=== PATIENT | female | born 1940 | race Caucasian/White ===

== ENCOUNTER 2021-11-04 13:49 | Emergency (ER) | payer MEDICARE, MEDICAID ==
[2021-11-04] MEDS ORDERED: GLIP5TAB12 PO (14:12)
[2021-11-04 15:55] LABS: BASOPHILS % (AUTO) 0.6 % (0.0-2.0); EOSINOPHILS % (AUTO) 1.1 % (1.0-6.0); HEMATOCRIT 37.6 % (36-46); HEMOGLOBIN 12.6 g/dL (12.0-16.0); LYMPHOCYTES # (AUTO) 2.2 K/uL (1.0-4.8); LYMPHOCYTES % (AUTO) 18.3 % (22.0-44.0); MEAN CORPUSCULAR HEMOGLOBIN 28.9 pg (26.0-34.0); MEAN CORPUSCULAR HGB CONC 33.6 G/dL (31.0-37.0); MEAN CORPUSCULAR VOLUME 86 fL (80-100); MONOCYTES # (AUTO) 0.8 K/uL (0.1-1.0); NEUTROPHILS # (AUTO) 8.7 K/uL (1.8-7.7); PLATELET COUNT (AUTO) 232 K/uL (150-450); RED BLOOD CELL COUNT(AUTO) 4.36 MIL/uL (4.00-5.20)
[2021-11-04 16:10] LABS: ANION GAP 5 mmol/L (8-16); CARBON DIOXIDE 32 mmol/L (22-29); CHLORIDE 100 mmol/L (98-107); GLOMERULAR FILTR. RATE CALC > 60 mL/min (>60); GLUCOSE,RANDOM 97 mg/dL (70-110); SODIUM SERUM 137 mmol/L (136-145); UREA NITROGEN, BLOOD 9 mg/dL (7-18)
[2021-11-04 16:14] LABS: APPEARANCE,URINE CLEAR (CLEAR); BILIRUBIN,URINE NEGATIVE (NEGATIVE); GLUCOSE, URINE (UA) NEGATIVE (NEGATIVE); KETONES,URINE NEGATIVE (NEGATIVE); LEUKOCYTE ESTERASE ,URINE NEGATIVE (NEGATIVE); NITRATE,URINE NEGATIVE (NEGATIVE); OCCULT BLOOD,URINE NEGATIVE (NEGATIVE); PH,URINE 7.5 (5.0-8.0); PROTEIN,URINE NEGATIVE (NEGATIVE); SPECIFIC GRAVITIY, URINE 1.003 (1.003-1.030); UROBILINOGEN,URINE <=1.0 mg/dL (<=1.0)
[2021-11-04 16:16] LABS: ALANINE AMINOTRANSFERASE 23 U/L (12-78); ALBUMIN 3.6 g/dL (3.4-5.0); ALKALINE PHOSPHATASE 97 U/L (46-116); ASPARTATE AMINOTRANSFERASE 23 U/L (15-37); BILIRUBIN,TOTAL 0.4 mg/dL (0.1-1.0); LIPASE 58 U/L (73-393); TOTAL PROTEIN, SERUM 7.7 g/dL (6.4-8.2)
[2021-11-04] MEDS ORDERED: SODIUM CHLORIDE 0.9% 500 ML IV ONE (17:30)
[2021-11-04 17:48] VITALS: BP 159/85
== END 2021-11-04 18:07 | disposition home or self-care (01) ==
LOC: EMS 13:51
DX: R10.11 Right upper quadrant pain (principal); R10.13 Epigastric pain; E11.9 Type 2 diabetes mellitus without complications; I10 Essential (primary) hypertension
CPT/HCPCS: 99284; 74176; 80053; 81003; 83690; 85025; 36415; J7040

== ENCOUNTER 2024-06-24 12:07 | Emergency (ER) | payer OTHER ==
[~2024-06-24] VITALS: Ht 157.5 cm; Wt 75.0 kg
[~2024-06-24 12:07] MED LIST: GLIP5TAB16 PO
[2024-06-24 12:13] VITALS: BP 153/102; PULSE 82; RESP 18; TEMP 98.2; O2SAT 97
[2024-06-24] MEDS ORDERED: DIPH-1243 PO (14:01)
[2024-06-24] MEDS ORDERED: PRED-554 PO (14:01)
[2024-06-24] MEDS ORDERED: TRIA15CR49 TP (14:01)
[2024-06-24] MEDS ORDERED: ASPI-1444 PO (14:11)
[2024-06-24] MEDS ORDERED: ESTR42.510 VG (14:11)
[2024-06-24] MEDS ORDERED: HYDR25TA PO (14:11)
[2024-06-24] MEDS ORDERED: BENA-8 PO (14:11)
[2024-06-24] MEDS ORDERED: DICL100G60 TP (14:11)
[2024-06-24] MEDS ORDERED: PANT20TA18 PO (14:11)
[2024-06-24] MEDS ORDERED: ZOLP-280 PO (14:11)
[2024-06-24] MEDS ORDERED: DULO-114 PO (14:11)
[2024-06-24] MEDS: PredniSONE 20 MG TABLET PO ONE (14:16)
== END 2024-06-24 14:18 | disposition home or self-care (01) ==
LOC: EMS 12:48
DX: L50.9 Urticaria, unspecified (principal); E11.9 Type 2 diabetes mellitus without complications; I10 Essential (primary) hypertension; Z79.52 Long term (current) use of systemic steroids
CPT/HCPCS: 99283; 82962; J7512